=== PATIENT | female | born 1960 | race Caucasian/White ===

== ENCOUNTER → 2016-09-11 | Outpatient (CLI) | payer BC ==
[~2016-09-11] MED LIST: AMLO5TAB4 PO; APRE1TAB3 PO; ASPI81TA28 PO; ATV/1 PO; ATV1 PO; CALCTAB7 PO; CPR500 PO; CYCL10TA6 PO; FEXO1TAB49 PO; FLUO20CA35 PO; FLV1 PO; GLC/500 PO; GOLI50IN IM; LEVO50TA PO; LISI10TA PO; LISI20TA3 PO; LISI40TA PO; MAGN400T6 PO; METH2.5T PO; MULT-513 PO; ONDA4TAB10 SL; OXYC1TAB3 PO; PRED-301 PO; PRM625 PO; PROBIOTIC PO; PROM12.57 PO; ROSU40TA PO; SNG10 PO
--- NOTE | 2016-09-11 08:23 | DIAGNOSTIC IMAGING REPORT ---
ABDOMINAL ULTRASOUND COMPLETE HISTORY: Bowel change DIARRHEA. COMPARISON: 11/14/2010 FINDINGS: Pancreas: The pancreas demonstrates a normal echotexture. Liver: Fatty infiltration Gallbladder: Trace gallbladder sludge. No shadowing gallstones. CBD: 4 mm Kidneys: No hydronephrosis. Spleen: Normal in size. Aorta: Normal in caliber. IVC: Patent. IMPRESSION: 1. Fatty infiltration of liver. 2. Trace sludge within the gallbladder lumen. 3. Normal caliber bile ducts. Electronically signed by: Ed Choudhary M.D. 09/11/2016 8:22 AM Dictated Date/Time: 09/11/2016 8:18 AM
== END | disposition home or self-care (01) ==
LOC: C.ULTR 07:21
PROVIDERS: ATTEND Internal Medicine Gastroenterology
DX: R63.0 Anorexia (principal); R19.7 Diarrhea, unspecified; R53.83 Other fatigue; K76.0 Fatty (change of) liver, not elsewhere classified

== ENCOUNTER → 2016-09-25 | Day surgery (SDC) | payer BC ==
[2016-09-23 10:43] VITALS: Ht 165.1 cm; Wt 65.5 kg
[~2016-09-25] VITALS: Ht 165.1 cm; Wt 65.5 kg
[~2016-09-25] MED LIST changes: -AMLO5TAB4 PO; -ATV1 PO; -CALCTAB7 PO; -CPR500 PO; -CYCL10TA6 PO; -FLV1 PO; -GOLI50IN IM; -LISI40TA PO; -MAGN400T6 PO; -METH2.5T PO; -OXYC1TAB3 PO; -PRED-301 PO; -PRM625 PO; -PROBIOTIC PO; -SNG10 PO
[2016-09-25 12:10] VITALS: BP 163/79; PULSE 63; O2SAT 98
--- NOTE | 2016-10-03 12:37 | OPERATIVE REPORT ---
DATE OF OPERATION: 09/25/2016 PROCEDURE PERFORMED: Bacterial overgrowth hydrogen breath test. REQUESTING PHYSICIAN: Rosendo Vargas MD. ENDOSCOPY NURSE: Connie ([facility] Rn) The patient reports that she was n.p.o., did not take any medications, and was tobacco-free on the morning of the study. Baseline hydrogen level was 5 parts per million and CO2 level was 2.4 parts per million. The patient had symptoms of nausea prior to ingestion of lactulose. The patient ingested 10 grams of lactulose orally with 8 ounces of water, and serial hydrogen determinations were collected every 20 minutes. At 20 minutes, hydrogen was 8 parts per million and CO2 was 4.3 parts per million with continued nausea. At 40 minutes, hydrogen level was 11 ppm and CO2 was 3.9 ppm with continued nausea with an increased sense of nausea from baseline. At 60 minutes, hydrogen level was 16 parts per million and CO2 was 4 parts per million with continued nausea that continued to increase according to the patient. At 80 minutes, breath hydrogen level was 25 parts per million and CO2 of 4.3 parts per million with continued nausea. At 100 minutes, hydrogen level was 33 ppm and CO2 of 4.2 ppm with additional symptoms of pain, cramping and nausea. At 120 minutes, breath hydrogen level was 25 ppm and CO2 level of 4.2 ppm, and the patient reports that she was experiencing pain, cramping and nausea, and "really starting to feel very sick." At 140 minutes, hydrogen level was 34 parts per million and CO2 of 4.1 parts per million with nausea with cessation of cramping and abdominal pain but still significant nausea experience. At 160 minutes and the final sample, hydrogen level was 42, CO2 was 3.9 parts per million, and the patient reported return of cramps and gas along with nausea. IMPRESSION: Overall, this study demonstrates evidence for small-bowel bacterial overgrowth with a 20 part per minute rise above baseline breath hydrogen level at approximately 90 minutes. Additionally, the patient developed symptoms with the lactulose challenge. I attest to the content of the Intraoperative Record and any orders documented therein. Any exceptions are noted below. MTDD
== END | disposition home or self-care (01) ==
LOC: C.GI 07:43
PROVIDERS: ATTEND Internal Medicine Gastroenterology
DX: R11.0 Nausea (principal); A04.9 Bacterial intestinal infection, unspecified

== ENCOUNTER → 2016-12-17 | Outpatient (CLI) | payer BC ==
[~2016-12-17] MED LIST changes: +LIRA18IN SQ
--- NOTE | 2016-12-17 12:09 | DIAGNOSTIC IMAGING REPORT ---
Nuclear gastric emptying study: CLINICAL HISTORY: WEIGHT LOSS COMPARISON STUDY: None. TECHNIQUE: Following the oral administration of 1.1 mCi of technetium 99m sulfur colloid in egg sandwich and 8 ounces of water, static abdominal images were obtained anteriorly and posteriorly at 0 minutes, 1 hour, 2 hour, and 4 hour time intervals. Gastric emptying was calculated utilizing the geometric mean method. FINDINGS: There is approximately 94% gastric activity remaining at the 1 hour time interval (normal is less than 90%), 91% at the 2 hour time interval (normal is less than 60%), and 69% remaining at the 4 hour time interval (normal is less than 10%). IMPRESSION: Findings consistent with markedly delayed gastric emptying, as detailed above. Electronically signed by: Jez Garibay M.D. 12/17/2016 12:08 PM Dictated Date/Time: 12/17/2016 12:06 PM
== END | disposition home or self-care (01) ==
LOC: C.NUCL 07:24
PROVIDERS: ATTEND Internal Medicine Gastroenterology
DX: R10.13 Epigastric pain (principal); R63.4 Abnormal weight loss

== ENCOUNTER 2017-02-18 09:40 | Emergency (ER) | payer BC ==
[~2017-02-18] VITALS: Ht 165.1 cm; Wt 58.2 kg
[~2017-02-18 09:40] MED LIST changes: -LIRA18IN SQ; -LISI20TA3 PO; -ONDA4TAB10 SL; -PROM12.57 PO
[2017-02-18 09:42] VITALS: TEMP 36.7; Ht 165.1 cm; Wt 58.2 kg
[2017-02-18] MEDS ORDERED: SODIUM CHLORIDE 0.9% 1000ML 1,000 ML IV STA (10:16)
[2017-02-18] MEDS ORDERED: PROMETHAZINE HCL INJ 25 MG in SODIUM CHLORIDE 0.9% 50ML 50 ML IV STA (10:16)
[2017-02-18] MEDS ORDERED: ONDA4TAB10 SL (10:24)
[2017-02-18] MEDS ORDERED: LISI20TA3 PO (10:24)
[2017-02-18 10:26] LABS: BASO % 0.9 %; BASO ABS # 0.07 K/uL (0-0.2); COMPLETE YES; EOS % 1.3 %; HEMATOCRIT 41.1 % (37-47); IG% 0.3 %; LYMPH % 24.9 %; LYMPH ABS # 1.94 K/uL (1.2-3.4); MEAN CELL VOLUME 86.9 fL (80-100); MEAN CORPUSCULAR HEMOGLOBIN 28.8 pg (25-34); MEAN CORPUSCULAR HGB CONC 33.1 g/dl (32-36); MEAN PLATELET VOLUME 10.4 fL (7.4-10.4); MONO % 8.3 %; NEUT % 64.3 %; PLATELET COUNT 376 K/uL (130-400); RED BLOOD COUNT 4.73 M/uL (4.2-5.4)
[2017-02-18 10:39] LABS: URINE APPEARANCE TURBID (CLEAR); URINE COLOR DK YELLOW; URINE EPITHELIAL CELL AUTO >30 /lpf (0-5); URINE NITRITE NEG (NEG); URINE PH 5.5 (4.5-7.5); URINE SPECIFIC GRAVITY 1.028 (1.000-1.030); UROBILINOGEN NEG (NEG); ZZUR CULT IF INDIC CLEAN CATCH YES
[2017-02-18 10:44] LABS: MANUAL MICROSCOPIC REQUIRED? NO; REVIEW REQ? YES; URINE BILIRUBIN NEG (NEG)
[2017-02-18 10:56] LABS: ALKALINE PHOSPHATASE 63 U/L (45-117); ALT/SGPT 28 U/L (12-78); BLOOD UREA NITROGEN 6 mg/dl (7-18); BUN/CREATININE RATIO 9.6 (10-20); CALCIUM 9.3 mg/dl (8.5-10.1); CARBON DIOXIDE 27 mmol/L (21-32); CHLORIDE 106 mmol/L (98-107); CREATININE 0.66 mg/dl (0.60-1.20); GLUCOSE 103 mg/dl (70-99); SODIUM 139 mmol/L (136-145); THYROID STIMULATING HORMONE 0.876 uIu/ml (0.300-4.500)
[2017-02-18 10:58] LABS: URINE MUCUS PRESENT (NONE PRSENT)
[2017-02-18 11:44] LABS: POTASSIUM 3.6 mmol/L (3.5-5.1)
[2017-02-18] MEDS ORDERED: PROCHLORPERAZINE 5 MG/ML 2 ML VIAL IV STA (11:48)
[2017-02-18 11:52] LABS: AST/SGOT 14 U/L (15-37); MAGNESIUM 1.5 mg/dl (1.8-2.4)
[2017-02-18] MEDS ORDERED: PROM12.57 PO (11:55)
[2017-02-18] MEDS ORDERED: POTASSIUM CHLORIDE 10 MEQ TABCR PO STA (11:56)
[2017-02-18] MEDS ORDERED: MAGNESIUM SULFATE 1GM / D5W 1 GM BAG IV STA ×2 (11:56→11:58)
--- NOTE | 2017-02-18 12:39 | EMERGENCY ROOM VISIT NOTE ---
History Report prepared by Margy: Little Iglesias Under the Supervision of: Dr. Uriel Canela D.O. First contact with patient: 10:11 Chief Complaint: GI ASSESSMENT Stated Complaint: DIARRHEA,LOSS OF APPETITE,WEAKNESS Nursing Triage Summary: pt to [facility] ED with c/o diarrhea and nausea and decreased PO intake, was seen at walk in clinic and they told her to come here. pt has a hx of gastroparesis for the past year and c/o weakness today History of Present Illness The patient is a 56 year old female who presents to the Emergency Room with complaints of persistent diarrhea starting [employer]. She went to the clinic today and was sent here. The patient was recently diagnosed with gastroparesis. She notes that she has had diarrhea 5-6 times a day and is sometimes incontinent. She reports weakness, weight loss, nausea, and decreased appetite. She is concerned that her potassium is low. She has been trying to drink Gatorade. She has a history of C diff. She has small bowel overgrowth. 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 Review of Systems See HPI for pertinent positives & negatives. A total of 10 systems reviewed and were otherwise negative. Past Medical & Surgical Medical Problems: (1) Gastroparesis Family History No pertinent family history stated. Social History Smoking Status: Former Smoker Marital Status: Occupation Status: retired Current/Historical Medications Scheduled Aspirin (Aspirin Ec), 81 MG PO DAILY Fexofenadine Hcl (Ioana Allergy), 1 TAB PO QAM Fluoxetine (Prozac), 20 MG PO QAM Levothyroxine Sodium (Synthroid), 50 MCG PO QAM Lisinopril (Prinivil), 20 MG PO BID Lorazepam (Ativan), 1 MG PO HS Metformin Hcl (Glucophage), 500 MG PO BID Multivitamins/Minerals (Mvi With Minerals), 1 TAB PO QAM Rosuvastatin Calcium (Crestor), 40 MG PO MWF Scheduled PRN Ondasetron Odt (Zofran Odt), 4 MG SL Q8H PRN for Nausea Promethazine (Phenergan ), 1-2 TABS PO Q6 PRN for Nausea or Vomiting Allergies Coded Allergies: Tobramycin (Verified Allergy, Mild, RASH, ITCHING, 09/25/16) Amoxicillin (Verified Allergy, Unknown, RASH, 09/25/16) Codeine (Verified Adverse Reaction, Mild, ELEV HEART RATE, 09/25/16) Physical Exam Vital Signs Date Time Temp Pulse Resp B/P (MAP) Pulse Ox O2 Delivery O2 Flow Rate FiO2 02/18/17 11:52 61 19 97 02/18/17 11:47 167/98 02/18/17 11:40 63 18 96 02/18/17 11:10 67 19 96 02/18/17 11:01 174/94 02/18/17 10:46 72 02/18/17 10:42 168/99 02/18/17 09:42 36.7 75 16 146/97 99 Physical Exam CONSTITUTIONAL/VITAL SIGNS: Reviewed / noted above. GENERAL: Non-toxic in appearance. INTEGUMENTARY: Warm, dry, and [place]. HEAD: Normocephalic. EYES: without scleral icterus or trauma. ENT/OROPHARYNX: clear and moist. LYMPHADENOPATHY/NECK: Is supple without lymphadenopathy or meningismus. RESPIRATORY: Lungs clear and equal. CARDIOVASCULAR: Regular rate and rhythm. GI/ABDOMEN: Soft and nontender. No organomegaly or pulsatile mass. No rebound or guarding. Normal bowel sounds. EXTREMITIES: Warm and well perfused. BACK: No CVA tenderness. NEUROLOGICAL: Intact without focal deficits. PSYCHIATRIC: normal affect. MUSCULOSKELETAL: Normally developed with good muscle tone. Medical Decision & Procedures Laboratory Results 02/18/17 10:04 Red Blood Count 4.73, Mean Corpuscular Volume 86.9, Mean Corpuscular Hemoglobin 28.8, Mean Corpuscular Hemoglobin Concent 33.1, Mean Platelet Volume 10.4, Neutrophils (%) (Auto) 64.3, Lymphocytes (%) (Auto) 24.9, Monocytes (%) (Auto) 8.3, Eosinophils (%) (Auto) 1.3, Basophils (%) (Auto) 0.9, Neutrophils # (Auto) 5.02, Lymphocytes # (Auto) 1.94, Monocytes # (Auto) 0.65, Eosinophils # (Auto) 0.10, Basophils # (Auto) 0.07 02/18/17 10:04 02/18/17 11:21 Test 02/18/17 10:04 02/18/17 10:07 02/18/17 11:21 White Blood Count 7.80 K/uL (4.8-10.8) Red Blood Count 4.73 M/uL (4.2-5.4) Hemoglobin 13.6 g/dL (12.0-16.0) Hematocrit 41.1 % (37-47) Mean Corpuscular Volume 86.9 fL (80-100) Mean Corpuscular Hemoglobin 28.8 pg (25-34) Mean Corpuscular Hemoglobin Concent 33.1 g/dl (32-36) Platelet Count 376 K/uL (130-400) Mean Platelet Volume 10.4 fL (7.4-10.4) Neutrophils (%) (Auto) 64.3 % Lymphocytes (%) (Auto) 24.9 % Monocytes (%) (Auto) 8.3 % Eosinophils (%) (Auto) 1.3 % Basophils (%) (Auto) 0.9 % Neutrophils # (Auto) 5.02 K/uL (1.4-6.5) Lymphocytes # (Auto) 1.94 K/uL (1.2-3.4) Monocytes # (Auto) 0.65 K/uL (0.11-0.59) Eosinophils # (Auto) 0.10 K/uL (0-0.5) Basophils # (Auto) 0.07 K/uL (0-0.2) RDW Standard Deviation 49.8 fL (36.4-46.3) RDW Coefficient of Variation 15.5 % (11.5-14.5) Immature Granulocyte % (Auto) 0.3 % Immature Granulocyte # (Auto) 0.02 K/uL (0.00-0.02) Anion Gap 6.0 mmol/L (3-11) Est Creatinine Clear Calc Drug Dose 87.7 ml/min Estimated GFR () 116.1 Estimated GFR (Non- 100.1 BUN/Creatinine Ratio 9.6 (10-20) Calcium Level 9.3 mg/dl (8.5-10.1) Total Bilirubin 0.5 mg/dl (0.2-1) Alanine Aminotransferase (ALT/SGPT) 28 U/L (12-78) Alkaline Phosphatase 63 U/L (45-117) Creatine Kinase MB < 0.5 ng/ml (0.5-3.6) Creatine Kinase MB Ratio (0-3.0) Total Protein 7.8 gm/dl (6.4-8.2) Albumin 3.7 gm/dl (3.4-5.0) Lipase 114 U/L (73-393) Thyroid Stimulating Hormone (TSH) 0.876 uIu/ml (0.300-4.500) Urine Color DK YELLOW Urine Appearance TURBID (CLEAR) Urine pH 5.5 (4.5-7.5) Urine Specific [place] 1.028 (1.000-1.030) Urine Protein TRACE (NEG) Urine Glucose (UA) NEG (NEG) Urine Ketones 1+ (NEG) Urine Occult Blood NEG (NEG) Urine Nitrite NEG (NEG) Urine Bilirubin NEG (NEG) Urine Urobilinogen NEG (NEG) Urine Leukocyte Esterase TRACE (NEG) Urine WBC (Auto) 10-30 /hpf (0-5) Urine RBC (Auto) 0-4 /hpf (0-4) Urine Hyaline Casts (Auto) 1-5 /lpf (0-5) Urine Epithelial Cells (Auto) >30 /lpf (0-5) Urine Bacteria (Auto) NEG (NEG) Urine Renal Epithelial Cells /lpf (0-5) Urine Crystals CALCIUM OXALATE (NONE Urine Pathogenic Casts /lpf (0) Urine Mucus PRESENT (NONE PRSENT) Magnesium Level 1.5 mg/dl (1.8-2.4) Direct Bilirubin < 0.1 mg/dl (0-0.2) Aspartate Amino Transf (AST/SGOT) 14 U/L (15-37) Total Creatine Kinase 49 U/L (26-192) Laboratory results as stated above per my review. Medications Administered Medications (Trade) Dose Ordered Sig/Dominic Route Start Time Stop Time Status Last Admin Dose Admin Sodium Chloride 1,000 ml @ 999 mls/hr Q1H1M STAT IV 02/18/17 10:16 02/18/17 11:16 DC 02/18/17 10:44 999 MLS/HR Promethazine HCl 25 mg/Sodium Chloride 51 ml @ 204 mls/hr NOW STAT IV 02/18/17 10:16 02/18/17 10:30 DC 02/18/17 10:44 204 MLS/HR Prochlorperazine Edisylate (Compazine Inj) 10 mg NOW STAT IV 02/18/17 11:48 8/2/17 11:49 DC 02/18/17 11:57 10 MG Potassium Chloride (Klor-Con M10) 40 meq NOW STAT PO 02/18/17 11:56 02/18/17 11:57 DC 02/18/17 12:04 40 MEQ Magnesium Sulfate (Magnesium Sulfate) 1 gm NOW STAT IV 02/18/17 11:58 02/18/17 11:59 DC 02/18/17 12:04 1 GM ECG Indication: weakness Rate (beats per minute): 65 Rhythm: normal sinus Findings: no ectopy, other (no acute injury) ED Course 1012: Previous medical records were reviewed. The patient was evaluated in room B5. A complete history and physical examination was performed. 1016: Promethazine HCl 25 mg/Sodium Chloride 51 ml @ 204 mls/hr IV, NSS 1000 ml @ 999 mls/hr IV. 1148: Compazine Inj 10 mg IV. 1156: Potassium Chloride 40 meq PO. 1158: Magnesium Sulfate 1 gm IV. 1200: On reevaluation, the patient is resting comfortably. I discussed the results and findings with the patient. She verbalized agreement of the treatment plan. She was discharged home. Medical Decision Differential includes acute coronary syndrome, myocardial infarction, CVA, TIA, anemia, infection, pneumonia, UTI, pyelonephritis, poor nutrition, dehydration, electrolyte disturbance,hypoglycemia. This is a 56-year-old female who presents to the ED with a chief complaint of generalized weakness as well as nausea and diarrhea. The patient reports a history of gastroparesis. She states that she has chronic diarrhea. She is supposed to see a specialist at [facility] to have the device implanted that will help her with gastroparesis. The patient states that she has been losing some weight. She is worried that her potassium might be low and that this could cause cardiac arrest. She reports 5-6 episodes of diarrhea today. She states that she is not supposed to be taking Imodium or other medications that slowed down her bowels. Her physical exam was unremarkable and her vital signs are stable. CBC is normal, urine shows 1+ ketones but no infection. EKG shows a normal sinus rhythm. Potassium is 3.6. Complete metabolic panel was unremarkable. Magnesium was 1.5. The patient was given IV fluids, IV Phenergan, IV Compazine, 1 mg of IV magnesium and oral potassium. She was told the results. She is feeling better. She was felt to be stable for discharge. Medication Reconcilliation Current Medication List: was personally reviewed by me Blood Pressure Screening Patient's blood pressure: Elevated blood pressure Blood pressure disposition: Elevated BP felt to be situational Impression Primary Impression: Diarrhea Additional Impressions: Nausea Hypomagnesemia Scribe Attestation The scribe's documentation has been prepared under my direction and personally reviewed by me in its entirety. I confirm that the note above accurately reflects all work, treatment, procedures, and medical decision making performed by me. Departure Information Dispostion Home / Self-Care Prescriptions Promethazine (Phenergan ) 12.5 Mg Tab 1-2 TABS PO Q6 Y for Nausea or Vomiting, #20 TAB Prov: Uriel Canela D.O. 02/18/17 Referrals Ofe Sung (PCP) Patient Instructions My [facility] Additional Instructions Phenergan as prescribed for nausea and vomiting. Follow-up with your doctor for further care and evaluation in 1-2 days. Return to the emergency department for worsening or new symptoms or any concerns. You have been examined and treated today on an emergency basis only. This is not a substitute for, or an effort to provide, complete comprehensive medical care. It is impossible to recognize and treat all injuries or illnesses in a single emergency department visit. It is therefore important that you follow up closely with your doctor. Call as soon as possible for an appointment. Problem Qualifiers
[2017-02-18 13:24] VITALS: BP 142/85; PULSE 85; O2SAT 98
== END 2017-02-18 13:25 | disposition home or self-care (01) ==
LOC: C.EDB 09:42
DX: R19.7 Diarrhea, unspecified (principal); R63.0 Anorexia; R11.0 Nausea; E83.42 Hypomagnesemia; Z87.891 Personal history of nicotine dependence; Z79.899 Other long term (current) drug therapy

== ENCOUNTER → 2017-03-20 | Outpatient (CLI) | payer BC ==
[~2017-03-20] MED LIST changes: -APRE1TAB3 PO; -LISI10TA PO; +LISI20TA3 PO; +ONDA4TAB10 SL; +PROM12.57 PO
--- NOTE | 2017-03-20 10:01 | DIAGNOSTIC IMAGING REPORT ---
(RENAL)RETROPERITON COMP CLINICAL HISTORY: 57 years-old Female presenting with LABILE, HYPERTENSION. TECHNIQUE: Real-time grayscale and limited color Doppler ultrasound imaging of the kidneys and bladder was performed. COMPARISON: 09/11/2016. FINDINGS: Right kidney: Normal echogenicity. Right kidney measures 10.8 cm. No hydronephrosis. No convincing evidence of calculus or mass. Normal perfusion. Left kidney: Normal echogenicity. Left kidney measures 12 cm. Hyperechoic 4 mm focus in the upper pole with twinkling artifact consistent with renal calculus. Additional calculi noted at the interpolar region. No hydronephrosis. Normal perfusion. Bladder: Incompletely distended, limiting evaluation. Other: None. IMPRESSION: 1. Left renal calculi. No hydronephrosis. Electronically signed by: Jovanny Poe M.D. 03/20/2017 9:59 AM Dictated Date/Time: 03/20/2017 9:58 AM
--- NOTE | 2017-03-20 10:07 | DIAGNOSTIC IMAGING REPORT ---
DUPLEX RENAL ARTERY CLINICAL HISTORY: 57 years-old Female presenting with LABILE, HYPERTENSION. TECHNIQUE: Real-time grayscale and color and spectral Doppler ultrasound imaging of the kidneys was performed. COMPARISON: 03/20/[address] from 2010. FINDINGS: Right kidney: Intrarenal resistive indices range from 0.64 to 0.67. Normal intrarenal arterial waveforms. Renal artery patent with peak systolic velocity 96-200 cm/s proximally, 207 cm/s in the midportion, 103 cm/s distally. This likely indicates a focal site of narrowing in the proximal right renal artery. Renal vein patent. Normal echogenicity. Right kidney measures 11 cm. No hydronephrosis. No convincing evidence of calculus or mass. Left kidney: Intrarenal resistive indices range from 0.64 to 0.73. Normal intrarenal arterial waveforms. Renal artery patent with peak systolic velocity 87 cm/s proximally, 129 cm/s in the midportion, 101 cm/s distally. Renal vein patent. Normal echogenicity. Left kidney measures 11.5 cm. No hydronephrosis. Renal calculi noted. Abdominal aorta: Patent. Peak systolic velocity 89 cm/s. Other: None. Reference ranges: Main renal artery peak systolic velocity less than 180 cm/s and ratio of renal artery PSV to aortic PSV less than 2.5 equates to less than 60% stenosis. IMPRESSION: Suspected stenosis of the proximal right renal artery, which may be greater than 60% stenosis, although this is equivocal given elevated velocity of 20 7 cm/s but ratio of renal artery PSV to aortic PSV less than 2.5. Electronically signed by: Jovanny Poe M.D. 03/20/2017 10:06 AM Dictated Date/Time: 03/20/2017 9:59 AM
== END | disposition home or self-care (01) ==
LOC: C.ULTR 09:01
PROVIDERS: ATTEND Nurse Practitioner Family
DX: I10 Essential (primary) hypertension (principal); E11.9 Type 2 diabetes mellitus without complications; N20.0 Calculus of kidney

== ENCOUNTER → 2017-05-06 | Outpatient (CLI) | payer BC ==
[~2017-05-06] MED LIST changes: +OPTIRAY 320 IV PRN
--- NOTE | 2017-05-06 09:58 | DIAGNOSTIC IMAGING REPORT ---
ANGIO ABD/PELVIS COMBO CLINICAL HISTORY: Renal artery stenosis. Labile hypertension. COMPARISON STUDY: CT of the abdomen and pelvis October 15, 2010 and renal Doppler ultrasound March 20, 2017. TECHNIQUE: Unenhanced and arterial phase imaging of the abdomen and pelvis was performed. Injection of 93 cc Optiray 320 IV was uneventful. Sagittal and coronal reconstructions were viewed as well as maximal intensity projections on an independent 3-D workstation. FINDINGS: Arterial phase images of the liver, spleen, adrenal glands, kidneys and pancreas are unremarkable. There is no biliary or pancreatic ductal dilatation. There is no peripancreatic or pericholecystic infiltration. No urinary calculi are identified. There is no hydronephrosis. Caliber and wall thickness of small and large bowel are normal. Postoperative findings within the spine are noted. There are no suspicious osseous lesions. The caliber of the abdominal aorta is normal. There is moderate calcified and noncalcified plaque of the distal abdominal aorta and the bilateral common iliac arteries without significant stenosis. There is no dissection within the abdominal aorta. The celiac axis, superior mesenteric artery and inferior mesenteric artery are patent. There may be stenosis at the origin of the inferior mesenteric artery which is difficult to assess on this exam. Single bilateral renal arteries are present. The left renal artery is patent with no stenosis. There is mild narrowing (30%) of the proximal right renal artery. The stenosis is located 1.2 cm distal to the vessel origin. No additional sites of stenosis are identified within the right renal artery. IMPRESSION: 1. Mild stenosis of approximately 30% of the proximal right renal artery. Stenosis located 1.2 cm distal to the vessel origin. No additional stenoses identified within the bilateral renal arteries. 2. Moderate atherosclerotic plaque of the distal abdominal aorta. Normal caliber abdominal aorta with no dissection. Electronically signed by: Jez Garibay M.D. 05/06/2017 9:56 AM Dictated Date/Time: 05/06/2017 9:41 AM
== END | disposition home or self-care (01) ==
LOC: C.CTS 08:57
PROVIDERS: ATTEND Physician Assistant
DX: I70.1 Atherosclerosis of renal artery (principal); I70.0 Atherosclerosis of aorta

== ENCOUNTER 2017-05-28 09:57 | Emergency (ER) | payer BC ==
[~2017-05-28] VITALS: Ht 165.1 cm; Wt 56.7 kg
[~2017-05-28 09:57] MED LIST changes: -OPTIRAY 320 IV PRN
[2017-05-28 10:02] VITALS: TEMP 36.6; Ht 165.1 cm; Wt 56.7 kg
[2017-05-28] MEDS ORDERED: SODIUM CHLORIDE 0.9% 1000ML 1,000 ML IV STA (10:17)
[2017-05-28] MEDS ORDERED: ONDANSETRON INJ 2 MG/ML 2 ML VIAL IV STA (10:24)
--- NOTE | 2017-05-28 10:24 | EMERGENCY ROOM VISIT NOTE ---
History Report prepared by Margy: Henna Zepeda Under the Supervision of: Dr. Robert Bo M.D. First contact with patient: 10:09 Chief Complaint: OTHER COMPLAINT Stated Complaint: INABILITY TO EAT, RAPID WEIGHT LOSS History of Present Illness The patient is a 57 year old female who presents to the Emergency Room with complaints of constant weight loss and loss of appetite. She has been unable to eat for 4 days. The patient was diagnosed with gastroparesis last year which started with Cdiff. Her Cdiff was eradicated. A week ago the patient was seen in [place] for her gastroparesis and was put on a special diet. She notes constant abdominal pain which is baseline for her. She has nausea, vomiting, and an occasional cough but denies any chest pain. The patient has some diarrhea but notes it is minimal and not like when she had Cdiff. She follows up with a specialist for her gastroparesis who told her to come to the ED whenever her loss of appetite escalates. The patient has a diabetes and her sugar levels have been normal. The patient is not a smoker and denies use of alcohol. Source of History: patient Onset: 4 days ago Position: other (global) Timing: constant Modifying Factors (Relieving): other (none) Associated Symptoms: + nausea, + vomiting, + abdominal pain, + diarrhea, No chest pain Note: Pt notes weight loss and loss of appetite. Review of Systems See HPI for pertinent positives & negatives. A total of 10 systems reviewed and were otherwise negative. Past Medical & Surgical Medical Problems: (1) Gastroparesis Old medical records were reviewed. Nurse's notes were reviewed and I agree with. Family History no pertinent family history stated. Social History Smoking Status: Never Smoker Drug Use: none Marital Status: Occupation Status: retired Current/Historical Medications Scheduled Aspirin (Aspirin Ec), 81 MG PO DAILY Fexofenadine Hcl (Ioana Allergy), 1 TAB PO QAM Fluoxetine (Prozac), 20 MG PO QAM Levothyroxine Sodium (Synthroid), 50 MCG PO QAM Liraglutide (Victoza), 1.2 MG SQ DAILY Lisinopril (Prinivil), 20 MG PO BID Lorazepam (Ativan), 1 MG PO HS Metformin Hcl (Glucophage), 500 MG PO BID Multivitamins/Minerals (Mvi With Minerals), 1 TAB PO QAM Rosuvastatin Calcium (Crestor), 40 MG PO MWF Scheduled PRN Ondasetron Odt (Zofran Odt), 4 MG SL Q8H PRN for Nausea Promethazine (Phenergan ), 1-2 TABS PO Q6 PRN for Nausea or Vomiting Allergies Coded Allergies: Tobramycin (Verified Allergy, Mild, RASH, ITCHING, 05/28/17) Amoxicillin (Verified Allergy, Unknown, RASH, 05/28/17) Codeine (Verified Adverse Reaction, Mild, ELEV HEART RATE, 05/28/17) Physical Exam Vital Signs Date Time Temp Pulse Resp B/P (MAP) Pulse Ox O2 Delivery O2 Flow Rate FiO2 05/28/17 11:53 65 16 140/80 97 05/28/17 11:34 65 16 140/80 97 Room Air 05/28/17 10:02 36.6 69 18 113/80 99 Room Air Physical Exam General: Non-ill appearing middle aged female in no acute distress. HEENT: Normal cephalic atraumatic. Pupils are equal round and reactive to light. Sclerae anicteric. Extraocular movements are intact. Oropharynx is pink with moist mucous membranes. No swelling of the mouth lips or tongue. Neck: Supple with a midline trachea. No meningeal signs or stiffness, no JVD or bruits. No Stridor. Chest: Clear to auscultation bilaterally. No wheezes or rhonchi. No increased work of breathing. Heart: regular rate and rhythm. Abdomen: Soft nontender, nondistended without rebound guarding or rigidity. Extremities: No cyanosis clubbing or edema. No calf tenderness or assymetry Spine/Back. Non tender to palpation. No CVA tenderness Skin: Good turgor without rashes. Neurologic exam: Cranial nerves two through 12 are intact. Motor and sensation are intact and symmetrical throughout. Medical Decision & Procedures Laboratory Results 05/28/17 10:45 Red Blood Count 4.26, Mean Corpuscular Volume 88.0, Mean Corpuscular Hemoglobin 29.1, Mean Corpuscular Hemoglobin Concent 33.1, Mean Platelet Volume 9.9, Neutrophils (%) (Auto) 65.1, Lymphocytes (%) (Auto) 23.9, Monocytes (%) (Auto) 8.9, Eosinophils (%) (Auto) 0.9, Basophils (%) (Auto) 1.0, Neutrophils # (Auto) 6.28, Lymphocytes # (Auto) 2.31, Monocytes # (Auto) 0.86, Eosinophils # (Auto) 0.09, Basophils # (Auto) 0.10 05/28/17 10:45 Test 05/28/17 10:25 05/28/17 10:45 Urine Color DK YELLOW Urine Appearance TURBID (CLEAR) Urine pH 5.0 (4.5-7.5) Urine Specific [place] 1.031 (1.000-1.030) Urine Protein 1+ (NEG) Urine Glucose (UA) NEG (NEG) Urine Ketones 1+ (NEG) Urine Occult Blood NEG (NEG) Urine Nitrite POS (NEG) Urine Bilirubin NEG (NEG) Urine Urobilinogen NEG (NEG) Urine Leukocyte Esterase SMALL (NEG) Urine WBC (Auto) 5-10 /hpf (0-5) Urine RBC (Auto) 0-4 /hpf (0-4) Urine Hyaline Casts (Auto) 5-10 /lpf (0-5) Urine Epithelial Cells (Auto) >30 /lpf (0-5) Urine Bacteria (Auto) NEG (NEG) Urine Renal Epithelial Cells 0-5 /lpf (0-5) Urine Crystals CALCIUM OXALATE (NONE Urine Pathogenic Casts /lpf (0) Urine Mucus PRESENT (NONE PRSENT) White Blood Count 9.66 K/uL (4.8-10.8) Red Blood Count 4.26 M/uL (4.2-5.4) Hemoglobin 12.4 g/dL (12.0-16.0) Hematocrit 37.5 % (37-47) Mean Corpuscular Volume 88.0 fL (80-100) Mean Corpuscular Hemoglobin 29.1 pg (25-34) Mean Corpuscular Hemoglobin Concent 33.1 g/dl (32-36) Platelet Count 327 K/uL (130-400) Mean Platelet Volume 9.9 fL (7.4-10.4) Neutrophils (%) (Auto) 65.1 % Lymphocytes (%) (Auto) 23.9 % Monocytes (%) (Auto) 8.9 % Eosinophils (%) (Auto) 0.9 % Basophils (%) (Auto) 1.0 % Neutrophils # (Auto) 6.28 K/uL (1.4-6.5) Lymphocytes # (Auto) 2.31 K/uL (1.2-3.4) Monocytes # (Auto) 0.86 K/uL (0.11-0.59) Eosinophils # (Auto) 0.09 K/uL (0-0.5) Basophils # (Auto) 0.10 K/uL (0-0.2) RDW Standard Deviation 49.3 fL (36.4-46.3) RDW Coefficient of Variation 15.3 % (11.5-14.5) Immature Granulocyte % (Auto) 0.2 % Immature Granulocyte # (Auto) 0.02 K/uL (0.00-0.02) Anion Gap 6.0 mmol/L (3-11) Est Creatinine Clear Calc Drug Dose 90.3 ml/min Estimated GFR () 117.0 Estimated GFR (Non- 101.0 BUN/Creatinine Ratio 15.0 (10-20) Calcium Level 9.3 mg/dl (8.5-10.1) Magnesium Level 1.8 mg/dl (1.8-2.4) Total Bilirubin 0.4 mg/dl (0.2-1) Direct Bilirubin 0.1 mg/dl (0-0.2) Aspartate Amino Transf (AST/SGOT) 15 U/L (15-37) Alanine Aminotransferase (ALT/SGPT) 24 U/L (12-78) Alkaline Phosphatase 66 U/L (45-117) Total Protein 8.0 gm/dl (6.4-8.2) Albumin 3.8 gm/dl (3.4-5.0) Lipase 82 U/L (73-393) Laboratory studies as stated above per my review. Medications Administered Medications (Trade) Dose Ordered Sig/Dominic Route Start Time Stop Time Status Last Admin Dose Admin Sodium Chloride 1,000 ml @ 999 mls/hr Q1H1M STAT IV 05/28/17 10:17 05/28/17 11:17 DC 05/28/17 10:42 999 MLS/HR Ondansetron HCl (Zofran Inj) 4 mg NOW STAT IV 05/28/17 10:24 05/28/17 10:26 DC 05/28/17 10:43 4 MG ED Course 1011: Past medical records reviewed. The patient was evaluated in room B5, and a complete history and physical examination were performed. 1017: Sodium Chloride 1000 ml @ 999 mls/hr IV. 1024: Zofran Inj 4 mg IV. 1156: Upon reevaluation, the patient is resting. I discussed the results and treatment plan with her. She verbalized agreement of the treatment plan. The patient was discharged home. Medical Decision Differential diagnosis: Dehydration, electrolyte or metabolic abnormality, infection, gastroparesis. This patient comes in as described above. She was placed in room B5. She has a history gastroparesis and has had nausea. She is concerned that she could be dehydrated. Her abdomen is minimally diffusely tender and she says is no different than typical. IV access established and she was hydrated 1 L IV normal saline bolus. She was given Zofran 4 mg IV and she is feeling a lot better. She's had no white count or fever to suggest infection. She has no surgical signs or peritonitis on exam. She has no acute electrolyte or metabolic abnormalities. She has nothing to suggest acute liver, gallbladder, or pancreas disease. She feels good and would like to go home. I will discharge her home at think this was acute exacerbation of gastroparesis she should follow very large this week for recheck. She should return if: increasing pain, worsening of symptoms, any problems or concerns. She was happy with the plan and discharged to home. Medication Reconcilliation Current Medication List: was personally reviewed by me Blood Pressure Screening Patient's blood pressure: Elevated blood pressure Blood pressure disposition: Elevated BP felt to be situational Impression Primary Impression: Gastroparesis Additional Impressions: Nausea Dehydration Scribe Attestation The scribe's documentation has been prepared under my direction and personally reviewed by me in its entirety. I confirm that the note above accurately reflects all work, treatment, procedures, and medical decision making performed by me. Departure Information Dispostion Home / Self-Care Referrals Ofe Sung (PCP) Forms HOME CARE DOCUMENTATION FORM, IMPORTANT VISIT INFORMATION, WORK / SCHOOL INSTRUCTIONS Patient Instructions My [facility] Additional Instructions Rest Drink plenty of fluids Use your antinausea meds as previously directed REturn if: worsening of symptoms, fever, increasing pain, any new problems or concerns Follow-up with your doctor in 1-2 days for recheck Problem Qualifiers
[2017-05-28 10:49] LABS: URINE APPEARANCE TURBID (CLEAR); URINE COLOR DK YELLOW; URINE EPITHELIAL CELL AUTO >30 /lpf (0-5); URINE NITRITE POS (NEG); URINE SPECIFIC GRAVITY 1.031 (1.000-1.030); UROBILINOGEN NEG (NEG)
[2017-05-28 10:55] LABS: COMPLETE YES; EOS % 0.9 %; HEMATOCRIT 37.5 % (37-47); IG% 0.2 %; LYMPH % 23.9 %; LYMPH ABS # 2.31 K/uL (1.2-3.4); MEAN CORPUSCULAR HEMOGLOBIN 29.1 pg (25-34); MEAN CORPUSCULAR HGB CONC 33.1 g/dl (32-36); MEAN PLATELET VOLUME 9.9 fL (7.4-10.4); MONO % 8.9 %; NEUT % 65.1 %; PLATELET COUNT 327 K/uL (130-400); RED BLOOD COUNT 4.26 M/uL (4.2-5.4); WHITE BLOOD COUNT 9.66 K/uL (4.8-10.8)
[2017-05-28] MEDS ORDERED: LIRA18IN SQ (11:06)
[2017-05-28 11:15] LABS: CALCIUM 9.3 mg/dl (8.5-10.1); CREATININE 0.63 mg/dl (0.60-1.20); MAGNESIUM 1.8 mg/dl (1.8-2.4); POTASSIUM 3.5 mmol/L (3.5-5.1)
[2017-05-28 11:32] LABS: MANUAL MICROSCOPIC REQUIRED? NO; REVIEW REQ? YES; URINE BILIRUBIN NEG (NEG)
[2017-05-28 11:40] LABS: URINE MUCUS PRESENT (NONE PRSENT)
[2017-05-28 11:53] VITALS: BP 140/80; PULSE 65; O2SAT 97
== END 2017-05-28 11:56 | disposition home or self-care (01) ==
LOC: C.EDB 10:00
DX: E11.43 Type 2 diabetes mellitus with diabetic autonomic (poly)neuropathy (principal); R11.0 Nausea; E86.0 Dehydration; Z79.82 Long term (current) use of aspirin; Z79.84 Long term (current) use of oral hypoglycemic drugs

== ENCOUNTER 2017-06-30 12:32 | Day surgery (SDC) | payer BC ==
[~2017-06-30] VITALS: Ht 165.1 cm; Wt 56.0 kg
[~2017-06-30 12:32] MED LIST changes: +LIRA18IN SQ; +SODIUM CHLORIDE 0.9% 1000ML 1,000 ML IV SCH
[2017-06-30 12:42] VITALS: BP 95/62; PULSE 72; TEMP 36.6; O2SAT 95; Ht 165.1 cm; Wt 56.0 kg
[2017-06-30] MEDS ORDERED: APRE1TAB3 PO (12:58)
== END 2017-09-08 07:38 | disposition home or self-care (01) ==
LOC: C.MTU 12:32
PROVIDERS: ATTEND Internal Medicine Gastroenterology
DX: K31.84 Gastroparesis (principal); E11.9 Type 2 diabetes mellitus without complications; E86.0 Dehydration; R63.4 Abnormal weight loss

== ENCOUNTER → 2018-02-26 | Outpatient (CLI) | payer BC ==
[~2018-02-26] MED LIST changes: +APRE1TAB3 PO; -PROM12.57 PO; -SODIUM CHLORIDE 0.9% 1000ML 1,000 ML IV SCH
--- NOTE | 2018-03-01 13:08 | MAMMOGRAPHY REPORT ---
BILATERAL DIGITAL SCREENING MAMMOGRAM TOMOSYNTHESIS WITH CAD: 02/26/2018 CLINICAL HISTORY: Routine screening. Patient has no complaints. TECHNIQUE: The study was acquired using full field digital technology and interpreted from soft copy. Breast tomosynthesis in addition to standard 2D mammography was performed. Current study was also ev aluated with a Computer Aided Detection (CAD) system. COMPARISON: Comparison is made to exams dated: 08/22/2015 mammogram, 01/24/2014 mammogram, 01/13/2013 [facility] mogram, 10/21/2011 mammogram - [facility], and 06/01/2007. BREAST COMPOSITION: The tissue of both breasts is heterogeneously dense, which may obscure small mass es. FINDINGS: There is a focal asymmetry measuring 7 mm within the right 12:00 breast, best seen on the tomosynthes is images, for which spot compression tomosynthesis views and possible breast ultrasound are recommen ded for further evaluation. The remainder of both breasts are stable compared to prior exams, without suspicious masses, calcific ations, or areas of architectural distortion noted. IMPRESSION: ACR BI-RADS CATEGORY 0: INCOMPLETE EVALUATION: NEED ADDITIONAL IMAGING EVALUATION Right breast focal asymmetry, for which additional imaging evaluation is recommended. The patient wi ll be called to schedule an appointment. Some breast cancers are not detected with mammography. A negative mammographic report should not stevie y biopsy if a clinically suggestive mass is present. Delaney Martin M.D. /:02/26/2018 16:42:06 Perforating Machine Operator: RT David(Navjot)(M), [facility] letter sent: Addl Imaging 0 BI-RADS Code: ACR BI-RADS Category 0: Incomplete Evaluation: Need Additional Imaging Evaluation
== END | disposition home or self-care (01) ==
LOC: C.MAMM 08:53
PROVIDERS: ATTEND Nurse Practitioner Family
DX: Z12.31 Encounter for screening mammogram for malignant neoplasm of breast (principal); N64.89 Other specified disorders of breast

== ENCOUNTER → 2018-03-09 | Outpatient (CLI) | payer BC ==
--- NOTE | 2018-03-09 15:12 | MAMMOGRAPHY REPORT ---
UNILATERAL RIGHT DIGITAL DIAGNOSTIC MAMMOGRAM TOMOSYNTHESIS AND TARGETED RIGHT ULTRASOUND: 03/09/2018 CLINICAL HISTORY: 57-year-old woman called back from screening mammography for a 7 mm focal asymmetry in the right breast at 12:00. TECHNIQUE: Spot compression right CC and MLO tomosynthesis images; right CC rolled medial tomosynthes is views were obtained. COMPARISON: Comparison is made to exams dated: 02/26/2018 mammogram, 08/22/2015 mammogram, 01/[facility]/2014 [facility], 01/13/2013 mammogram, 10/21/2011 mammogram - [facility], and 01/22/2009. BREAST COMPOSITION: The tissue of right breast is heterogeneously dense, which may obscure small mass es. FINDINGS: The spot compression tomosynthesis views of the right breast, particularly in the CC projec tion, demonstrate partial effacement of the asymmetry in the middle one third of the breast along the posterior nipple line on the CC view. No definite architectural distortion or persistent mass. Fur ther evaluation with ultrasound was performed. Targeted ultrasound was performed in the right breast 11:00, 12:00, 1:00, retroareolar and 5:00 to 7: 00 axes. Sonographic normal tissue is seen without a discrete solid or cystic mass. Normal overlapping tissue was suspected but an additional right CC rolled medial view was obtained wh ich demonstrates complete effacement of the asymmetry, confirming benign overlapping tissue. Recomme nd return to annual screening mammography schedule. IMPRESSION: ACR BI-RADS CATEGORY 2: BENIGN, ULTRASOUND ACR BI-RADS CATEGORY 2: BENIGN Effacement of the right breast asymmetry at approximately 12:00, and no suspicious sonographic correl ate identified. This most likely represented normal overlapping tissue and is considered benign. Re commend return to annual screening mammography schedule due in February 2019. These results and recommendations were discussed with the patient at the time of the exam. Some breast cancers are not detected with mammography. A negative mammographic report should not stevie y biopsy if a clinically suggestive mass is present. Clementina Somers M.D. ay/:03/09/2018 11:29:09 Resourcing Advisor: Debby Bazan RT(R)(M), [facility] letter sent: Normal 1/2 OVERALL STUDY BIRADS: 2 Benign
== END | disposition home or self-care (01) ==
LOC: C.MAMM 10:23
PROVIDERS: ATTEND Nurse Practitioner Family
DX: N64.89 Other specified disorders of breast (principal)